=== PATIENT | female | born 1960 ===

== ENCOUNTER 2017-01-04 10:08 | Emergency (ER) | payer MEDICARE, MEDICAID ==
[2017-01-04 10:09] VITALS: BMI 27.8
[2017-01-04 10:29] VITALS: TEMP 98.1; O2SAT 100
[2017-01-04] MEDS ORDERED: Sodium Chloride 0.9% 500 ML IV STA (11:24)
--- NOTE | 2017-01-04 11:29 | ED PDOC ---
Arrival/HPI - General Chief Complaint: Back Pain Time Seen by Provider: 01/04/17 10:48 Historian: Patient - History of Present Illness Narrative History of Present Illness (Text): 01/04/17 11:26 56 yo female w/PMHx of NIDDM, CAD s/p PTCA come in for evaluation of URI sx for past 3 days associated with bodyaches, chills, nasal congestion, dry cough. Pt sts, since yesterday, developed diffused lower abdominal pain and left flank pain " worse with coughing and movement". Otherwise, pt denies high fever, headache, dizziness, neck pain, CP, SOB, dyspnea, diaphoresis, palpitation, V/D , UTi sx, rash. Ambulate to Ed for evaluation, not in any apparent distress. Past Medical History - Provider Review Nursing Documentation Reviewed: Yes - Travel History Have you recently traveled outside [place] w/in the past 3 mons?: No - Infectious Disease Hx of Infectious Diseases: None - Cardiac Hx Cardiac Disorders: Yes (CARDIAC CATH 2009) Hx Hypertension: Yes - Pulmonary Hx Respiratory Disorders: No - Neurological Hx Neurological Disorder: No - HEENT Hx HEENT Disorder: Yes Hx Glaucoma: Yes - Renal Hx Renal Disorder: No - Endocrine/Metabolic Hx Endocrine Disorders: Yes Hx Diabetes Mellitus Type 1: Yes - Hematological/Oncological Hx Blood Disorders: No - Integumentary Hx Dermatological Disorder: No - Musculoskeletal/Rheumatological Hx Musculoskeletal Disorders: Yes Hx Rheumatoid Arthritis: Yes - Gastrointestinal Hx Gastrointestinal Disorders: No - Genitourinary/Gynecological Hx Genitourinary Disorders: No - Psychiatric Hx Psychophysiologic Disorder: Yes Hx Anxiety: Yes Hx Substance Use: No - Surgical History Hx Coronary Stent: Yes (x2) Hx Hysterectomy: Yes Hx Tubal Ligation: Yes - Anesthesia Hx Anesthesia: Yes Hx Anesthesia Reactions: No Hx Malignant Hyperthermia: No - Suicidal Assessment Feels Threatened In Home Enviroment: No Family/Social History - Physician Review Nursing Documentation Reviewed: Yes Family/Social History: No Known Family HX Smoking Status: Never Smoked Hx Alcohol Use: No (rare social occassion) Hx Substance Use: No Hx Substance Use Treatment: No Allergies/Home Meds Allergies/Adverse Reactions: Allergies No Known Allergies Allergy (Verified 01/04/17 10:29) Home Medications: Home Meds Medication Instructions Recorded Confirmed Amlodipine Besylate 10 mg PO DAILY 12/14/11 01/04/17 Glipizide [Glipizide Xl] 10 mg PO BID 12/14/11 01/04/17 Linagliptin [Tradjenta] 5 mg PO DAILY 12/14/11 01/04/17 Metformin HCl [Metformin] 1,000 mg PO BID 12/14/11 01/04/17 Clopidogrel [Plavix] 75 mg PO DAILY 07/05/12 01/04/17 Folic Acid 1 mg PO DAILY 05/23/14 01/04/17 Losartan Potassium 25 mg PO DAILY 05/23/14 01/04/17 Atorvastatin [Lipitor] 40 mg PO DAILY 01/04/17 01/04/17 Cyclobenzaprine [Flexeril] 1 tab PO PRN PRN 01/04/17 01/04/17 Fluticasone Propionate [Flovent 50 mcg IH DAILY 01/04/17 01/04/17 Diskus] Methotrexate 2.5 mg PO WED 01/04/17 01/04/17 Metoprolol Succinate [Toprol XL] 1 tab PO DAILY 01/04/17 01/04/17 Review of Systems - Review of Systems Constitutional: Fatigue Eyes: Normal ENT: Sore Throat, Rhinorrhea Respiratory: Cough. absent: SOB, Sputum, Wheezing Cardiovascular: Normal Gastrointestinal: Abdominal Pain, Other (Left flank pain). absent: Diarrhea, Vomiting, Hematochezia, Hematemesis Genitourinary Female: Normal Musculoskeletal: Normal Skin: Normal Neurological: Normal Endocrine: Normal Hemo/Lymphatic: Normal Psychiatric: Normal Physical Exam Vital Signs Reviewed: Yes Vital Signs Temp Pulse Resp BP Pulse Ox 01/04/17 12:09 72 17 120/70 100 01/04/17 10:22 98.1 F 76 18 124/57 L 100 Temperature: Afebrile Blood Pressure: Normal Pulse: Regular Respiratory Rate: Normal Appearance: Positive for: Well-Appearing, Non-Toxic, Comfortable Pain Distress: Mild Mental Status: Positive for: Alert and Oriented X 3 - Systems Exam Conjunctiva: Present: Normal Ears: Present: NORMAL TM (B/L) Mouth: Present: Moist Mucous Membranes, Normal Lips. No: Drooling Pharnyx: Present: Normal. No: ERYTHEMA, EXUDATE, TONSILS ENLARGED Nose (Internal): Present: Clear Mucous (B/L) Neck: Present: Trachea Midline. No: Meningeal Signs, JVD, Lymphadenopathy, Bruit Respiratory/Chest: Present: Clear to Auscultation, Good Air Exchange. No: Respiratory Distress, Accessory Muscle Use Cardiovascular: Present: Regular Rate and Rhythm, Normal S1, S2. No: Murmurs Abdomen: Present: Tenderness (diffuse lower abdominal), Normal Bowel Sounds, Other (mild left flank tenderness.). No: Distention, Peritoneal Signs, Rebound , Guarding Back: No: CVA Tenderness Upper Extremity: Present: Normal ROM, NORMAL PULSES, Neurovascularly Intact. No : Deformity Lower Extremity: Present: NORMAL PULSES, Normal ROM, Neurovascularly Intact. No : Edema, CALF TENDERNESS, Tenderness, Deformity Neurological: Present: GCS=15, Speech Normal Skin: Present: Warm, Dry, Normal Color. No: Rashes Psychiatric: Present: Alert, Oriented x 3, Normal Insight, Normal Concentration Medical Decision Making ED Course and Treatment: 01/04/17 On re-eval, pt is afebrile, hemodynamicaly stable. Non-toxic. Tolerate Po well in ED. PulsEOx 100% RA ENT: no acute findings Neck: Supple, (-) JVD, (-) carotid bruits Lungs: CTA B/L, BS equal B/L. Abd: benign, (-) guarding, (-) rebound. back: (-) CVA tenderness. NO peripheral edema. Neurologicaly intact. Blood work, UA results review and appears at baseline, no acute abnormalities. CXR: no acute infiltrate. Pt has clinical findings c/w acute bronchitis, flank pain. Pt advised. ref. to f/u with PMd in 1-2 days for re-eval. return to ED if any worsening or new changes. - Lab Interpretations Lab Results: 01/04/17 11:44 01/04/17 11:44 Lab Results 01/04/17 11:44: Sodium 140, Potassium 4.4, Chloride 101, Carbon Dioxide 26, Anion Gap 17, BUN 12, Creatinine 0.7, Est GFR ( Amer) > 60, Est GFR (Non- Af Amer) > 60, Random Glucose 192 H, Calcium 9.3, Total Bilirubin 0.6, AST 26, ALT 25, Alkaline Phosphatase 81, Total Protein 7.7, Albumin 4.4, Globulin 3.3, Albumin/Globulin Ratio 1.3 01/04/17 11:44: Urine Color Yellow, Urine Appearance Sl cloudy, Urine pH 6.0, Ur Specific [place] >= 1.030, Urine Protein 100 H, Urine Glucose (UA) Negative, Urine Ketones Trace H, Urine Blood Negative, Urine Nitrate Negative, Urine Bilirubin Negative, Urine Urobilinogen 1.0 H, Ur Leukocyte Esterase Trace H, Urine RBC Negative, Urine WBC 0 - 2, Ur Epithelial Cells Many, Urine Other Mucus 01/04/17 11:44: WBC 8.5, RBC 4.08, Hgb 11.7 L, Hct 34.6 L, MCV 84.8, MCH 28.7, MCHC 33.8, RDW 12.5, Plt Count 351, MPV 9.3, Gran % 62.1, Lymph % (Auto) 29.0, [place] % (Auto) 6.7 H, Eos % (Auto) 1.8, Baso % (Auto) 0.4, Gran # 5.29, Lymph # 2.5, [place] # 0.6, Eos # 0.2, Baso # 0.03 Interpretation: No sign. chg./baseline - RAD Interpretation Radiology Orders: 01/04/17 10:49 CHEST TWO VIEWS (PA/LAT) [RAD] Stat 01/04/17 12:49 ABD & PELVIS W/O PO OR IV CONT [CT] Stat (-) acute findings Accession No. : [id number] Patient Name / ID : MARIUSZ LEPE / [id number] Exam Date : 01/04/2017 13:15:11 ( Approved ) Study Comment : Sex / Age : F / 56Y Creator : Boaz Worthington MD Dictator : Boaz Worthington MD Laundry Laborer : Infantry Weapons Officer : Boaz Worthington MD Approver2 : Report Date : 01/04/2017 14:07:32 My Comment : PROCEDURE: CT Abdomen and Pelvis without intravenous contrast HISTORY: groin pain COMPARISON: None. TECHNIQUE: Technique. Contrast Dose: Radiation dose: Total exam DLP = 561 mGy-cm. This CT exam was performed using one or more of the following dose reduction techniques: Automated exposure control, adjustment of the mA and/or kV according to patient size, and/or use of iterative reconstruction technique. FINDINGS: LOWER THORAX: Unremarkable. LIVER: Unremarkable. No gross lesion or ductal dilatation. GALLBLADDER AND BILE DUCTS: Unremarkable. PANCREAS: Unremarkable. No gross lesion or ductal dilatation. SPLEEN: Unremarkable. ADRENALS: Unremarkable. No mass. KIDNEYS AND URETERS: Unremarkable. No hydronephrosis. No solid mass. VASCULATURE: Unremarkable. No aortic aneurysm. BOWEL: Unremarkable. No obstruction. No gross mural thickening. APPENDIX: Unremarkable. Normal appendix. PERITONEUM: Unremarkable. No free fluid. No free air. LYMPH NODES: Unremarkable. No enlarged lymph nodes. BLADDER: Unremarkable. REPRODUCTIVE: Unremarkable. BONES: No acute fracture. OTHER FINDINGS: None. IMPRESSION: Unremarkable non contrast enhanced CT of the abdomen and pelvis. - Medication Orders Current Medication Orders: Discontinued Medications Albuterol Sulfate (Albuterol 0.083% Inhal Umu (2.5 Mg/3 Ml) Ud) 2.5 mg IH STAT STA Stop: 01/04/17 12:53 Last Admin: 01/04/17 13:40 Dose: 2.5 mg Azithromycin (Zithromax) 500 mg PO STAT STA PRN Reason: Protocol Stop: 01/04/17 12:52 Last Admin: 01/04/17 13:40 Dose: 500 mg Sodium Chloride (Sodium Chloride 0.9%) 500 mls @ 1,000 mls/hr IV .Q30M STA Stop: 01/04/17 11:53 Last Admin: 01/04/17 11:38 Dose: 1,000 mls/hr Ondansetron HCl (Zofran Inj) 4 mg IVP STAT STA Stop: 01/04/17 12:51 Last Admin: 01/04/17 13:40 Dose: 4 mg Tramadol HCl (Ultram) 50 mg PO STAT STA Stop: 01/04/17 12:52 Last Admin: 01/04/17 13:40 Dose: 50 mg Disposition/Present on Arrival - Present on Arrival Any Indicators Present on Arrival: No History of DVT/PE: No History of Uncontrolled Diabetes: No Urinary Catheter: No History of Decub. Ulcer: No History Surgical Site Infection Following: None - Disposition Have Diagnosis and Disposition been Completed?: Yes Diagnosis: Back pain, Bronchitis Disposition Time: 14:10 Patient Plan: Discharge Patient Problems: Current Active Problems Problem Status Onset Back pain Acute Bronchitis Acute Condition: STABLE Discharge Instructions (ExitCare): Acute Bronchitis (ED), Flank Pain (ED) Print Language: MONEGASQUE Additional Instructions: ENCOURAGE FLUIDS TAKE MEDICATION PRESCRIBED FOLLOW UP WITH PMD IN 2-3 DAYS FOR RE-EVALUATION. RETURN TO ED IF ANY WORSENING OR NEW CHANGES. Prescriptions: Benzonatate [Tessalon Perle] 100 mg PO TID #14 capsule Clarithromycin [Clarithromycin ER] 500 mg PO BID #14 tab.er.24h traMADol [Ultram] 50 mg PO TID #7 tab Referrals: PCP,NO [Primary Care Provider] - Follow up with primary Artemio Rodriguez MD [Medical Doctor] - Follow up with primary Forms: [employer] (Bhutanese)
[2017-01-04 11:54] LABS: BASO # 0.03 K/mm3 (0.0-2.0); BASO % 0.4 % (0.0-3.0); EOS # 0.2 (0.0-0.7); EOS % 1.8 % (1.5-5.0); GRAN # 5.29 (1.4-6.5); GRAN % 62.1 % (50.0-68.0); HEMATOCRIT 34.6 % (36.0-48.0); LYMPH # 2.5 (1.2-3.4); MEAN CELL VOLUME 84.8 fl (80.0-105.0); MEAN CORPUSCULAR HEMOGLOBIN 28.7 pg (25.0-35.0); MEAN CORPUSCULAR HGB CONC 33.8 g/dl (31.0-37.0); MEAN PLATELET VOLUME 9.3 fl (7.0-11.0); MONO # 0.6 (0.1-0.6); MONO % 6.7 % (1.0-6.0); RED CELL DISTRIBUTION WIDTH 12.5 % (11.5-14.5); WHITE BLOOD COUNT 8.5 10^3/ul (4.5-11.0)
[2017-01-04 12:02] LABS: URINE APPEARANCE SL CLOUDY (CLEAR); URINE BILIRUBIN NEGATIVE (NEGATIVE); URINE BLOOD NEGATIVE (NEGATIVE); URINE COLOR YELLOW (YELLOW); URINE GLUCOSE (UA) NEGATIVE (NEGATIVE); URINE KETONE TRACE mg/dL (NEGATIVE); URINE LEUKOCYTE ESTERASE TRACE Leu/uL (NEGATIVE); URINE PROTEIN 100 mg/dL (<30 mg/dL)
[2017-01-04 12:05] LABS: URINE EPITHELIAL CELLS MANY /hpf (0-5); URINE RBC NEGATIVE /hpf (0-2); URINE WBC 0 - 2 /hpf (0-6)
[2017-01-04 12:11] LABS: ALB/GLOB RATIO 1.3 (1.1-1.8); ALKALINE PHOSPHATASE 81 U/L (38-126); ALT/SGPT 25 U/L (7-56); AST/SGOT 26 U/L (14-36); BILIRUBIN,TOTAL 0.6 mg/dL (0.2-1.3); BLOOD UREA NITROGEN 12 mg/dL (7-21); CALCIUM 9.3 mg/dL (8.4-10.5); CARBON DIOXIDE 26 mmol/L (21-33); CHLORIDE 101 mmol/L (98-107); GFR AFRICAN-AMERICAN > 60; GLUCOSE,RANDOM 192 mg/dL (70-110); POTASSIUM 4.4 mmol/L (3.6-5.0); SODIUM 140 mmol/L (132-148); TOTAL PROTEIN 7.7 g/dL (5.8-8.3)
[2017-01-04] MEDS ORDERED: Albuterol 0.083% Inhal Sol (2.5 mg/3 mL) UD IH STA (12:52)
--- NOTE | 2017-01-04 12:59 | RAD ---
HISTORY: Cough COMPARISON: 12/14/2011. TECHNIQUE: Chest PA and lateral FINDINGS: LUNGS: The lungs are well inflated and clear. PLEURA: No significant pleural effusion identified. No pneumothorax apparent. CARDIOVASCULAR: Normal. OSSEOUS STRUCTURES: Within normal limits for the patient's age. VISUALIZED UPPER ABDOMEN: Normal. OTHER FINDINGS: None. IMPRESSION: No active pulmonary disease.
[2017-01-04 13:59] VITALS: RESP 17
--- NOTE | 2017-01-04 14:09 | CT ---
PROCEDURE: CT Abdomen and Pelvis without intravenous contrast HISTORY: groin pain COMPARISON: None. TECHNIQUE: Technique. Contrast Dose: Radiation dose: Total exam DLP = 561 mGy-cm. This CT exam was performed using one or more of the following dose reduction techniques: Automated exposure control, adjustment of the mA and/or kV according to patient size, and/or use of iterative reconstruction technique. FINDINGS: LOWER THORAX: Unremarkable. LIVER: Unremarkable. No gross lesion or ductal dilatation. GALLBLADDER AND BILE DUCTS: Unremarkable. PANCREAS: Unremarkable. No gross lesion or ductal dilatation. SPLEEN: Unremarkable. ADRENALS: Unremarkable. No mass. KIDNEYS AND URETERS: Unremarkable. No hydronephrosis. No solid mass. VASCULATURE: Unremarkable. No aortic aneurysm. BOWEL: Unremarkable. No obstruction. No gross mural thickening. APPENDIX: Unremarkable. Normal appendix. PERITONEUM: Unremarkable. No free fluid. No free air. LYMPH NODES: Unremarkable. No enlarged lymph nodes. BLADDER: Unremarkable. REPRODUCTIVE: Unremarkable. BONES: No acute fracture. OTHER FINDINGS: None. IMPRESSION: Unremarkable non contrast enhanced CT of the abdomen and pelvis.
[2017-01-04 14:40] VITALS: BP 125/82; PULSE 70
== END 2017-01-04 14:40 | disposition home or self-care (01) ==
LOC: ED 10:08
DX: M54.9 Dorsalgia, unspecified (principal); J40 Bronchitis, not specified as acute or chronic
CPT/HCPCS: 71020; 74176; 80053; 81001; 85025; 87086; 96374; 99285; J2405; J7040